=== PATIENT | female | born 2000 | race African-American/Black ===

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

== ENCOUNTER 2018-01-17 20:30 | Emergency (ER) | payer MEDICAID, OTHER ==
[~2018-01-17] VITALS: Ht 170.2 cm; Wt 54.4 kg
[~2018-01-17 20:30] MED LIST: COLACE100 MG ORAL; NAPROXEN500 M1 ORAL; ROBAXIN500 MG PO
[2018-01-17] MEDS ORDERED: GABAPENTIN600 MG ORAL (20:50)
[2018-01-17] MEDS ORDERED: WELLBUTRIN XL150 MG ORAL (20:50)
[2018-01-17] MEDS ORDERED: Azithromycin 250mg tab ORAL ONE (21:00)
[2018-01-17] MEDS ORDERED: Lidocaine 1% MPF 10mg/ml 5ml INJ ONE (21:00)
--- NOTE | 2018-01-17 21:04 | Emergency Room Report ---
History of Present Illness General Chief Complaint: Female Urogenital Problems Source: Patient Present Illness HPI Is a 17-year-old female with no past medical history. She presents with chief complaint of hematuria. Onset tonight. Also with dysuria and frequency and urgency. No back pain. No nausea no vomiting. No abdominal pain. Her second complaint is that she was told by her girlfriend that she may have chlamydia. She has no discharge. No sore throat. Allergies: Coded Allergies: No Known Allergies (Unverified , 10/23/17) Patient History Past Medical History: see triage record, old chart reviewed Past Surgical History: none Pertinent Family History: none Last Menstrual Period: 01/05/18 Now: No : 0 Para: 0 Immunizations: other Reviewed Nursing Documentation: PMH: Agreed; PSxH: Agreed Nursing Documentation-PMH Past Medical History: No History, Except For Review of Systems Eye: Denies: eye pain, blurred vision ENT: Denies: ear pain, nose congestion, throat swelling Respiratory: Denies: cough, shortness of breath Cardiovascular: Denies: chest pain, palpitations Gastrointestinal: Denies: abdominal pain, diarrhea, nausea, vomiting Genitourinary: Reports: hematuria Musculoskeletal: Denies: back pain, joint pain Skin: Denies: rash Neurological: Denies: headache, numbness Endocrine: Denies: increased thirst, increased urine Hematologic/Lymphatic: Denies: easy bruising All Other Systems: negative except mentioned in HPI Physical Exam Vital Signs Date Time Temp Pulse Resp B/P (MAP) Pulse Ox O2 Delivery O2 Flow Rate FiO2 01/17/18 20:40 98.2 73 16 126/79 94 Room Air 98.2 vitals normal Sp02 EP Interpretation: reviewed, normal General Appearance: well appearing, no apparent distress, alert Head: normocephalic, atraumatic Eyes: bilateral eye PERRL, bilateral eye EOMI ENT: hearing grossly normal, normal pharynx Neck: full range of motion, supple, no meningismus Respiratory: chest non-tender, lungs clear, normal breath sounds Cardiovascular #1: regular rate, rhythm, no murmur Gastrointestinal: normal bowel sounds, non tender, no mass, no organomegaly, no bruit, non-distended Musculoskeletal: back normal, gait/station normal, normal range of motion Psychiatric: mood/affect normal Skin: warm/dry Medical Decision Making Diagnostic Impression: Primary Impression: Hematuria Qualified Codes: R31.9 - Hematuria, unspecified Additional Impression: STD exposure ER Course Patient with reported hematuria. No evidence of infection. CT scan is pending. Patient doesn't want to stay for the final report because she says she has relief. She is competent to make a decision. CT/MRI/US Diagnostic Results CT/MRI/US Diagnostic Results : Imaging Test Ordered: CT abd/pelvis Impression Neg per radiologist. Last Vital Signs Date Time Temp Pulse Resp B/P (MAP) Pulse Ox O2 Delivery O2 Flow Rate FiO2 01/17/18 20:40 98.2 73 16 126/79 94 Room Air 98.2 Status: unchanged Disposition: HOME, SELF-CARE Condition: Stable Additional Instructions: follow-up with your Dr. in 7 days. if you still have urine in your blood, you will need a referral to see a specialist. Return if worse. MAK SCHMITT M.D. Jan 17, 2018 21:04
[2018-01-17 21:25] VITALS: BP 126/79
[2018-01-17 21:25] LABS: APPEARANCE,URINE CLEAR; BILIRUBIN, URINE NEGATIVE (NEGATIVE); COLOR,URINE PALE YELLOW; GLUCOSE, URINE (UA) NEGATIVE (NEGATIVE); KETONES,URINE NEGATIVE (NEGATIVE); LEUKOCYTE ESTERASE ,URINE NEGATIVE (NEGATIVE); NITRITE,URINE NEGATIVE (NEGATIVE); PH,URINE 7 (4.5-8.0); PROTEIN,URINE NEGATIVE (NEGATIVE); UROBILINOGEN,URINE NORMAL MG/DL (0.0-1.0)
[2018-01-17 22:45] VITALS: BP 126/79
--- NOTE | 2018-01-18 09:09 | Diagnostic Imaging Report ---
Indication: Abdominal pain Technique: Spiral acquisitions obtained through the abdomen and pelvis. No oral contrast utilized, per emergency room physician request No IV contrast utilized, per referring physician request.. Multiplanar reconstructions were generated. Total dose length product 502.71 mGycm. CTDIvol(s) 10.21 mGy. Dose reduction achieved using automated exposure control Comparison: None Findings: The appendix is normal. No evidence of diverticulosis or diverticulitis. No small bowel distention. No free or loculated intraperitoneal air. There is trace free pelvic fluid. Stomach is full of food. The distal esophagus and duodenum are unremarkable. Lack of IV contrast limits assessment of solid organs. The gallbladder, liver, bile ducts, pancreas, spleen, adrenals, kidneys are all unremarkable. No pelvic mass or adenopathy. No mesenteric or retroperitoneal mass or adenopathy. The included lung bases are clear. The bones are unremarkable. Impression: Essentially unremarkable exam Trace free pelvic fluid is probably physiologic This agrees with the preliminary interpretation provided overnight by [facility] teleradiology service. The CT scanner at [facility] is accredited by the [employer] and the scans are performed using protocols designed to limit radiation exposure to as low as reasonably achievable to attain images of sufficient resolution adequate for diagnostic evaluation.
== END 2018-01-17 22:48 | disposition home or self-care (01) ==
LOC: EMR 21:20
DX: R31.9 Hematuria, unspecified (principal); Z20.2 Contact with and (suspected) exposure to infections with a predominantly sexual mode of transmission
CPT/HCPCS: 74176; 81003; 81025; 96372; 99284; J0696; Q0144

== ENCOUNTER 2018-06-07 20:45 | Emergency (ER) | payer MEDICAID, OTHER ==
[~2018-06-07] VITALS: Ht 170.2 cm; Wt 56.7 kg
[~2018-06-07 20:45] MED LIST changes: +GABAPENTIN600 MG ORAL; +WELLBUTRIN XL150 MG ORAL
[2018-06-07 21:00] VITALS: BP 122/74
[2018-06-07] MEDS ORDERED: Morphine Sulfate 2mg/ml Inj IM ONE (21:15)
[2018-06-07] MEDS ORDERED: NORCO 5-325 TA1 EACH ORAL (23:29)
[2018-06-07] MEDS ORDERED: AMOXICILLIN500 MG ORAL (23:29)
[2018-06-07 23:35] VITALS: BP 122/74
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
--- NOTE | 2018-06-08 09:48 | Diagnostic Imaging Report ---
Indication: Trauma to the mandible. Pain in the mandible facial region Technique: Continuous helical transaxial imaging of the maxillofacial structures obtained without intravenous contrast administration. Coronal 2-D reformats were also obtained. Study obtained in a Siemens sensation [address] Automatic Exposure Control was utilized. Total Dose length Product (DLP): [address] Dose Index Volume (CTDIvol): 0.15, 28.19 mGy Comparison: None Findings: There is an acute fracture involving the body of the left mandible, nondisplaced. Nondisplaced fracture of the right mandibular ramus and coronoid process also demonstrated. Soft tissue swelling noted. The mastoids are clear bilaterally. Paranasal sinuses are clear. Orbits appear unremarkable. IMPRESSION: Acute mandible fractures as described above The CT scanner at [facility] is accredited by the [employer] and the scans are performed using dose optimization techniques as appropriate to a performed exam including Automatic Exposure control.
== END 2018-06-07 23:38 | disposition home or self-care (01) ==
LOC: EMR 21:20
DX: S02.642A Fracture of ramus of left mandible, initial encounter for closed fracture (principal); Y04.0XXA Assault by unarmed brawl or fight, initial encounter; Y92.89 Other specified places as the place of occurrence of the external cause; Y07.9 Unspecified perpetrator of maltreatment and neglect; F41.9 Anxiety disorder, unspecified
CPT/HCPCS: 70486; 96372; 99284; J2270